=== PATIENT | male | born 1960 | race African-American/Black ===

== ENCOUNTER 2020-11-02 11:32 | Inpatient (IN) | payer BC ==
[2020-11-02] MEDS ORDERED: ALBUTEROL SO4 2.5/IPRATROPIUM 0.5 INH SOL 3 ML VIAL.NEB. NEB ONE ×2 (11:56→12:48)
[2020-11-02] MEDS ORDERED: DEXAMETHASONE SOD PHOSPHATE 4 MG/1 ML VIAL IVPUSH ONE (11:57)
[2020-11-02 12:40] LABS: BASO % 0.4 % (0-2.0); HEMATOCRIT 41.8 % (35.4-49); HEMOGLOBIN 14.5 GM/dL (11.7-16.9); LYMPH % 6.5 % (8-40); MCH 31.8 pg (25.7-33.7); MCHC 34.7 g/dl (32.0-35.9); MEAN CELL VOLUME 91.7 fl (80-96); MEAN PLT VOLUME 8.1 fl (7.5-11.1); MONO % 5.6 % (3.8-10.2); NEUT % 87.5 % (42.8-82.8); PLATELET COUNT 470 K/MM3 (134-434); RBC 4.56 M/mm3 (4.00-5.60); RDW 12.8 % (11.9-15.9); WHITE BLOOD COUNT 10.6 K/mm3 (4.0-10.0)
[2020-11-02 12:48] LABS: VENOUS BASE EXCESS 1.6 mmol/L (-2-2); VENOUS O2 SATURATION 31.3 % (70-80); VENOUS PCO2 41.6 mmHg (38-52); VENOUS PH 7.419 (7.310-7.410)
[2020-11-02] MEDS ORDERED: DEXAMETHASONE SOD PHOSPHATE 4 MG/1 ML VIAL ONE (12:48)
[2020-11-02] MEDS ORDERED: CEFTRIAXONE 1,000 MG in DEXTROSE 5%-WATER - 50 ML IVPB ONE (12:56)
[2020-11-02] MEDS ORDERED: AZITHROMYCIN IVPB 500 MG in DEXTROSE 5%-WATER - 250 ML IVPB ONE (12:56)
[2020-11-02 13:12] LABS: POTASSIUM 4.9 mmol/L (3.5-5.1)
[2020-11-02 13:15] LABS: ALBUMIN 3.2 g/dl (3.4-5.0); BLOOD UREA NITROGEN 17.9 mg/dL (7-18)
[2020-11-02 13:16] LABS: BILIRUBIN,DIRECT 0.4 mg/dL (0.0-0.2)
[2020-11-02 13:18] LABS: CREATININE 1.3 mg/dL (0.55-1.3); TOT PROT 8.2 g/dl (6.4-8.2)
[2020-11-02 13:23] LABS: LACTIC ACID 2.1 mmol/L (0.4-2.0)
[2020-11-02] MEDS ORDERED: CEFTRIAXONE 1 GM/50 ML BAG ONE (13:42)
[2020-11-02] MEDS ORDERED: AZITHROMYCIN IVPB 500 MG/250 ML BAG IVPB ONE (13:42)
[2020-11-02] MEDS ORDERED: ENOXAPARIN NA (PORCINE) 40 MG/0.4 ML DISP.SYRIN SQ ONE ×2 (13:44→15:08)
[2020-11-02] MEDS ORDERED: REMDESIVIR 200 MG in SODIUM CHLORIDE 210 ML IVPB ONE (15:00)
[2020-11-02] MEDS: ALBUTEROL SO4 HFA INHALER IH SCH ×2 (16:47→20:32)
[2020-11-02 20:10] LABS: EPI CELLS 18 /uL (0-25.1); HYALINE CASTS 7 /uL (0-3.1); URINE APPEARANCE CLEAR; URINE BACTERIA 211 /uL (0-1359); URINE BILIRUBIN 1+ (NEGATIVE); URINE COLOR DK YELLOW; URINE GLUCOSE (UA) NEGATIVE (NEGATIVE); URINE KETONE TRACE (NEGATIVE); URINE LEUK ESTERASE NEGATIVE (NEGATIVE); URINE NITRITE NEGATIVE (NEGATIVE); URINE PROTEIN 2+ (NEGATIVE); URINE RBC 14 /uL (0-23.9); URINE WBC 14 /uL (0-25.8)
[2020-11-02] MEDS: ENOXAPARIN NA (PORCINE) 100 MG/1 ML DISP.SYRIN SQ SCH (21:17)
[2020-11-02] MEDS: ATORVASTATIN CA 10 MG TABLET (FP) PO SCH (21:17)
[2020-11-02] MEDS: BUDESONIDE/FORMETEROL FUMARATE 160/4.5 mcg INHALER IH SCH (22:21)
[2020-11-03] MEDS: LEVOTHYROXINE NA 100 MCG TABLET (FP) PO SCH (06:02)
[2020-11-03 07:33] LABS: BASO % 0.3 % (0-2.0); HEMATOCRIT 36.8 % (35.4-49); LYMPH % 5.3 % (8-40); MCH 32.1 pg (25.7-33.7); MCHC 35.3 g/dl (32.0-35.9); MEAN CELL VOLUME 90.9 fl (80-96); MEAN PLT VOLUME 8.4 fl (7.5-11.1); NEUT % 90.4 % (42.8-82.8); PLATELET COUNT 436 K/MM3 (134-434); RBC 4.04 M/mm3 (4.00-5.60); RDW 12.4 % (11.9-15.9)
[2020-11-03 07:34] LABS: INR 1.2 (0.83-1.09); PROTHROMBIN TIME (PATIENT) 14.7 SEC (9.7-13.0)
[2020-11-03 07:36] LABS: ACTIVATED PTT 38.2 SECONDS (25.2-36.5)
[2020-11-03 07:53] LABS: POTASSIUM 4.8 mmol/L (3.5-5.1)
[2020-11-03 08:00] LABS: ALBUMIN 2.7 g/dl (3.4-5.0); CALCIUM 8.4 mg/dL (8.5-10.1)
[2020-11-03 08:02] LABS: BLOOD UREA NITROGEN 23.2 mg/dL (7-18); MAGNESIUM 3.4 mg/dL (1.8-2.4)
[2020-11-03 08:03] LABS: CREATININE 1.1 mg/dL (0.55-1.3)
[2020-11-03 08:06] LABS: BILIRUBIN,TOTAL 0.7 mg/dL (0.2-1); TOT PROT 7.1 g/dl (6.4-8.2)
[2020-11-03] MEDS ORDERED: cefTRIAXone SODIUM 1 GM VIAL ONE ×3 (08:58→09:34)
[2020-11-03] MEDS ORDERED: DEXTROSE 5%-WATER - 50 ML IVPB ONE ×2 (08:58→09:00)
[2020-11-03] MEDS ORDERED: PT OWN MED DRAWER 7, Y5N ONE (08:59)
[2020-11-03] MEDS ORDERED: AZITHROMYCIN IVPB 250 MG in DEXTROSE 5%-WATER - 250 ML IVPB SCH (10:00)
[2020-11-03] MEDS ORDERED: AZITHROMYCIN IVPB 500 MG in DEXTROSE 5%-WATER - 250 ML IVPB SCH (10:00)
[2020-11-03] MEDS: ALBUTEROL SO4 HFA INHALER IH SCH ×4 (10:38→20:00)
[2020-11-03] MEDS: ENOXAPARIN NA (PORCINE) 100 MG/1 ML DISP.SYRIN SQ SCH ×2 (10:38→21:36)
[2020-11-03] MEDS: FAMOTIDINE 20 MG TABLET PO SCH ×2 (10:39→21:36)
[2020-11-03] MEDS: CLOPIDOGREL BISULFATE 75 MG TABLET (FP) PO SCH (10:39)
[2020-11-03] MEDS: DEXAMETHASONE SOD PHOSPHATE 4 MG/1 ML VIAL IVPUSH SCH (10:39)
[2020-11-03] MEDS: BUDESONIDE/FORMETEROL FUMARATE 160/4.5 mcg INHALER IH SCH ×2 (10:39→21:37)
[2020-11-03] MEDS: ASPIRIN COATED 81 MG TABLET.EC PO SCH (10:39)
[2020-11-03] MEDS: CEFTRIAXONE 1 GM in DEXTROSE 5%-WATER - 50 ML IVPB SCH (10:39)
[2020-11-03] MEDS ORDERED: REMDESIVIR 100 MG in SODIUM CHLORIDE 230 ML IVPB SCH (15:00)
[2020-11-03] MEDS ORDERED: CARVEDILOL 6.25 MG TABLET (FP) PO SCH (15:00)
[2020-11-03] MEDS: ATORVASTATIN CA 10 MG TABLET (FP) PO SCH (21:36)
[2020-11-04] MEDS: LEVOTHYROXINE NA 100 MCG TABLET (FP) PO SCH (06:15)
[2020-11-04 07:06] LABS: HEMATOCRIT 37.1 % (35.4-49); MCH 31.7 pg (25.7-33.7); MCHC 34.9 g/dl (32.0-35.9); MEAN CELL VOLUME 90.7 fl (80-96); MEAN PLT VOLUME 8.2 fl (7.5-11.1); PLATELET COUNT 566 K/MM3 (134-434); RDW 12.3 % (11.9-15.9)
[2020-11-04 07:17] LABS: POTASSIUM 4.7 mmol/L (3.5-5.1)
[2020-11-04 07:20] LABS: ALBUMIN 2.6 g/dl (3.4-5.0); BLOOD UREA NITROGEN 27.2 mg/dL (7-18); MAGNESIUM 3.4 mg/dL (1.8-2.4)
[2020-11-04 07:23] LABS: BILIRUBIN,TOTAL 0.6 mg/dL (0.2-1); CREATININE 0.9 mg/dL (0.55-1.3); TOT PROT 7.1 g/dl (6.4-8.2)
[2020-11-04] MEDS ORDERED: cefTRIAXone SODIUM 1 GM VIAL ONE (09:03)
[2020-11-04] MEDS ORDERED: DEXTROSE 5%-WATER - 50 ML IVPB ONE (09:04)
[2020-11-04] MEDS: CEFTRIAXONE 1 GM in DEXTROSE 5%-WATER - 50 ML IVPB SCH (09:48)
[2020-11-04] MEDS: FAMOTIDINE 20 MG TABLET PO SCH ×2 (09:49→21:42)
[2020-11-04] MEDS: CLOPIDOGREL BISULFATE 75 MG TABLET (FP) PO SCH (09:49)
[2020-11-04] MEDS: ENOXAPARIN NA (PORCINE) 100 MG/1 ML DISP.SYRIN SQ SCH ×2 (09:49→21:41)
[2020-11-04] MEDS: DEXAMETHASONE SOD PHOSPHATE 4 MG/1 ML VIAL IVPUSH SCH (09:49)
[2020-11-04] MEDS: ASPIRIN COATED 81 MG TABLET.EC PO SCH (09:49)
[2020-11-04] MEDS: SENNOSIDES 8.6MG TABLET (FP) PO SCH ×2 (09:50→21:42)
[2020-11-04] MEDS: ALBUTEROL SO4 HFA INHALER IH SCH ×3 (09:50→16:01)
[2020-11-04] MEDS: DOCUSATE SODIUM 100 MG CAPSULE (FP) PO SCH (09:50)
[2020-11-04] MEDS: BUDESONIDE/FORMETEROL FUMARATE 160/4.5 mcg INHALER IH SCH ×2 (10:42→21:42)
[2020-11-04] MEDS: ATORVASTATIN CA 10 MG TABLET (FP) PO SCH (21:42)
[2020-11-05] MEDS: LEVOTHYROXINE NA 100 MCG TABLET (FP) PO SCH (06:13)
[2020-11-05 07:46] LABS: HEMATOCRIT 35.4 % (35.4-49); HEMOGLOBIN 12.3 GM/dL (11.7-16.9); MCH 31.6 pg (25.7-33.7); MCHC 34.8 g/dl (32.0-35.9); MEAN PLT VOLUME 8.1 fl (7.5-11.1); PLATELET COUNT 526 K/MM3 (134-434); RBC 3.89 M/mm3 (4.00-5.60); RDW 12.3 % (11.9-15.9); WHITE BLOOD COUNT 8.2 K/mm3 (4.0-10.0)
[2020-11-05] MEDS: ALBUTEROL SO4 HFA INHALER IH SCH ×3 (07:54→16:47)
[2020-11-05 07:58] LABS: POTASSIUM 4.5 mmol/L (3.5-5.1)
[2020-11-05 08:06] LABS: ALBUMIN 2.5 g/dl (3.4-5.0); BILIRUBIN,TOTAL 0.6 mg/dL (0.2-1); BLOOD UREA NITROGEN 23.4 mg/dL (7-18)
[2020-11-05 08:07] LABS: TOT PROT 6.6 g/dl (6.4-8.2)
[2020-11-05 08:09] LABS: CREATININE 0.9 mg/dL (0.55-1.3)
[2020-11-05 08:10] LABS: CALCIUM 8.8 mg/dL (8.5-10.1)
[2020-11-05] MEDS ORDERED: cefTRIAXone SODIUM 1 GM VIAL ONE (09:36)
[2020-11-05] MEDS ORDERED: DEXTROSE 5%-WATER - 50 ML IVPB ONE (09:37)
[2020-11-05] MEDS: CEFTRIAXONE 1 GM in DEXTROSE 5%-WATER - 50 ML IVPB SCH (09:53)
[2020-11-05] MEDS: ENOXAPARIN NA (PORCINE) 100 MG/1 ML DISP.SYRIN SQ SCH ×2 (09:53→22:19)
[2020-11-05] MEDS: SENNOSIDES 8.6MG TABLET (FP) PO SCH ×2 (09:54→22:19)
[2020-11-05] MEDS: DOCUSATE SODIUM 100 MG CAPSULE (FP) PO SCH (09:54)
[2020-11-05] MEDS: DEXAMETHASONE SOD PHOSPHATE 4 MG/1 ML VIAL IVPUSH SCH (09:54)
[2020-11-05] MEDS: CLOPIDOGREL BISULFATE 75 MG TABLET (FP) PO SCH (09:54)
[2020-11-05] MEDS: FAMOTIDINE 20 MG TABLET PO SCH ×2 (09:54→22:19)
[2020-11-05] MEDS: ASPIRIN COATED 81 MG TABLET.EC PO SCH (09:54)
[2020-11-05] MEDS: BUDESONIDE/FORMETEROL FUMARATE 160/4.5 mcg INHALER IH SCH ×2 (09:55→22:19)
[2020-11-05] MEDS: ATORVASTATIN CA 10 MG TABLET (FP) PO SCH (22:19)
[2020-11-06] MEDS: LEVOTHYROXINE NA 100 MCG TABLET (FP) PO SCH (06:07)
[2020-11-06 07:38] LABS: HEMATOCRIT 38.1 % (35.4-49); HEMOGLOBIN 13.1 GM/dL (11.7-16.9); MCH 31.6 pg (25.7-33.7); MCHC 34.4 g/dl (32.0-35.9); MEAN CELL VOLUME 91.9 fl (80-96); MEAN PLT VOLUME 7.5 fl (7.5-11.1); PLATELET COUNT 609 K/MM3 (134-434); RBC 4.14 M/mm3 (4.00-5.60); RDW 12.3 % (11.9-15.9); WHITE BLOOD COUNT 10.1 K/mm3 (4.0-10.0)
[2020-11-06 07:47] LABS: POTASSIUM 4.8 mmol/L (3.5-5.1)
[2020-11-06 07:50] LABS: CALCIUM 8.9 mg/dL (8.5-10.1)
[2020-11-06 07:54] LABS: CREATININE 0.9 mg/dL (0.55-1.3)
[2020-11-06] MEDS ORDERED: DEXTROSE 5%-WATER - 50 ML IVPB ONE (08:18)
[2020-11-06] MEDS ORDERED: cefTRIAXone SODIUM 1 GM VIAL ONE (08:18)
[2020-11-06] MEDS: DEXAMETHASONE SOD PHOSPHATE 4 MG/1 ML VIAL IVPUSH SCH (10:31)
[2020-11-06] MEDS: SENNOSIDES 8.6MG TABLET (FP) PO SCH ×2 (10:31→22:03)
[2020-11-06] MEDS: ASPIRIN COATED 81 MG TABLET.EC PO SCH (10:31)
[2020-11-06] MEDS: DOCUSATE SODIUM 100 MG CAPSULE (FP) PO SCH (10:31)
[2020-11-06] MEDS: CLOPIDOGREL BISULFATE 75 MG TABLET (FP) PO SCH (10:31)
[2020-11-06] MEDS: CEFTRIAXONE 1 GM in DEXTROSE 5%-WATER - 50 ML IVPB SCH (10:32)
[2020-11-06] MEDS: ENOXAPARIN NA (PORCINE) 100 MG/1 ML DISP.SYRIN SQ SCH ×2 (10:32→22:03)
[2020-11-06] MEDS: FAMOTIDINE 20 MG TABLET PO SCH ×2 (10:32→22:03)
[2020-11-06] MEDS: BUDESONIDE/FORMETEROL FUMARATE 160/4.5 mcg INHALER IH SCH ×2 (10:32→22:04)
[2020-11-06] MEDS: ATORVASTATIN CA 10 MG TABLET (FP) PO SCH (22:03)
[2020-11-07] MEDS: LEVOTHYROXINE NA 100 MCG TABLET (FP) PO SCH (06:08)
[2020-11-07] MEDS: ALBUTEROL SO4 HFA INHALER IH SCH ×4 (10:36→22:00)
[2020-11-07] MEDS: DOCUSATE SODIUM 100 MG CAPSULE (FP) PO SCH (10:36)
[2020-11-07] MEDS: SENNOSIDES 8.6MG TABLET (FP) PO SCH ×2 (10:37→22:28)
[2020-11-07] MEDS: DEXAMETHASONE SOD PHOSPHATE 4 MG/1 ML VIAL IVPUSH SCH (10:37)
[2020-11-07] MEDS: FAMOTIDINE 20 MG TABLET PO SCH ×2 (10:37→22:28)
[2020-11-07] MEDS: ASPIRIN COATED 81 MG TABLET.EC PO SCH (10:37)
[2020-11-07] MEDS: CLOPIDOGREL BISULFATE 75 MG TABLET (FP) PO SCH (10:37)
[2020-11-07] MEDS: ENOXAPARIN NA (PORCINE) 100 MG/1 ML DISP.SYRIN SQ SCH (10:37)
[2020-11-07] MEDS: BUDESONIDE/FORMETEROL FUMARATE 160/4.5 mcg INHALER IH SCH ×2 (10:38→22:28)
[2020-11-07] MEDS ORDERED: TOCILIZUMAB IVPB ONE (15:00)
[2020-11-07] MEDS ORDERED: SODIUM CHLORIDE IVPB ONE (15:00)
[2020-11-07] MEDS ORDERED: ENOXAPARIN NA (PORCINE) 100 MG/1 ML DISP.SYRIN SQ SCH (22:00)
[2020-11-07] MEDS: ENOXAPARIN NA (PORCINE) 80 MG/0.8 ML DISP.SYRIN SQ SCH (22:28)
[2020-11-07] MEDS: ATORVASTATIN CA 10 MG TABLET (FP) PO SCH (22:28)
[2020-11-08] MEDS: LEVOTHYROXINE NA 100 MCG TABLET (FP) PO SCH (07:21)
[2020-11-08] MEDS: ENOXAPARIN NA (PORCINE) 80 MG/0.8 ML DISP.SYRIN SQ SCH ×2 (09:32→21:46)
[2020-11-08] MEDS: SENNOSIDES 8.6MG TABLET (FP) PO SCH ×2 (09:32→21:46)
[2020-11-08] MEDS: ALBUTEROL SO4 HFA INHALER IH SCH ×4 (09:33→21:47)
[2020-11-08] MEDS: DEXAMETHASONE SOD PHOSPHATE 4 MG/1 ML VIAL IVPUSH SCH (09:33)
[2020-11-08] MEDS: FAMOTIDINE 20 MG TABLET PO SCH ×2 (09:33→21:47)
[2020-11-08] MEDS: CLOPIDOGREL BISULFATE 75 MG TABLET (FP) PO SCH (09:33)
[2020-11-08] MEDS: DOCUSATE SODIUM 100 MG CAPSULE (FP) PO SCH (09:33)
[2020-11-08] MEDS: ASPIRIN COATED 81 MG TABLET.EC PO SCH (09:33)
[2020-11-08] MEDS: BUDESONIDE/FORMETEROL FUMARATE 160/4.5 mcg INHALER IH SCH ×2 (09:33→21:47)
[2020-11-08] MEDS: ATORVASTATIN CA 10 MG TABLET (FP) PO SCH (21:47)
[2020-11-09] MEDS: LEVOTHYROXINE NA 100 MCG TABLET (FP) PO SCH (06:15)
[2020-11-09 09:20] LABS: BASO % 0.2 % (0-2.0); EOS % 0.5 % (0-4.5); HEMATOCRIT 40.4 % (35.4-49); HEMOGLOBIN 14.3 GM/dL (11.7-16.9); LYMPH % 6.7 % (8-40); MCH 31.4 pg (25.7-33.7); MCHC 35.3 g/dl (32.0-35.9); MEAN PLT VOLUME 7.7 fl (7.5-11.1); MONO % 3.3 % (3.8-10.2); NEUT % 89.3 % (42.8-82.8); PLATELET COUNT 765 K/MM3 (134-434); RBC 4.55 M/mm3 (4.00-5.60); RDW 12.3 % (11.9-15.9); WHITE BLOOD COUNT 12.4 K/mm3 (4.0-10.0)
[2020-11-09 09:28] LABS: POTASSIUM 5.2 mmol/L (3.5-5.1)
[2020-11-09] MEDS: DEXAMETHASONE SOD PHOSPHATE 4 MG/1 ML VIAL IVPUSH SCH (10:02)
[2020-11-09] MEDS: DOCUSATE SODIUM 100 MG CAPSULE (FP) PO SCH (10:05)
[2020-11-09] MEDS: ENOXAPARIN NA (PORCINE) 80 MG/0.8 ML DISP.SYRIN SQ SCH ×2 (10:06→21:49)
[2020-11-09] MEDS: SENNOSIDES 8.6MG TABLET (FP) PO SCH ×3 (10:06→21:58)
[2020-11-09] MEDS: CLOPIDOGREL BISULFATE 75 MG TABLET (FP) PO SCH (10:06)
[2020-11-09] MEDS: ASPIRIN COATED 81 MG TABLET.EC PO SCH (10:06)
[2020-11-09] MEDS: ALBUTEROL SO4 HFA INHALER IH SCH ×4 (10:07→20:10)
[2020-11-09] MEDS: FAMOTIDINE 20 MG TABLET PO SCH ×2 (10:08→21:49)
[2020-11-09] MEDS: BUDESONIDE/FORMETEROL FUMARATE 160/4.5 mcg INHALER IH SCH ×2 (10:08→21:50)
[2020-11-09 10:25] LABS: ALBUMIN 2.7 g/dl (3.4-5.0); BLOOD UREA NITROGEN 29.2 mg/dL (7-18); CALCIUM 9.8 mg/dL (8.5-10.1)
[2020-11-09 10:28] LABS: CREATININE 0.9 mg/dL (0.55-1.3)
[2020-11-09 10:29] LABS: BILIRUBIN,TOTAL 0.8 mg/dL (0.2-1); TOT PROT 7.5 g/dl (6.4-8.2)
[2020-11-09] MEDS ORDERED: SODIUM ZIRCONIUM CYCLOSILICATE (LOKELMA) 5 GM PACKET PO ONE (11:18)
[2020-11-09] MEDS: ATORVASTATIN CA 10 MG TABLET (FP) PO SCH (21:49)
[2020-11-10] MEDS: LEVOTHYROXINE NA 100 MCG TABLET (FP) PO SCH (06:32)
[2020-11-10] MEDS: ALBUTEROL SO4 HFA INHALER IH SCH ×3 (08:13→22:26)
[2020-11-10] MEDS ORDERED: MORPHINE SULFATE 2 MG/ML VIAL ONE (08:21)
[2020-11-10] MEDS: MORPHINE SULFATE 2 MG/ML VIAL IVPUSH ONE ×2 (08:28→10:33)
[2020-11-10] MEDS: SENNOSIDES 8.6MG TABLET (FP) PO SCH ×3 (08:29→22:26)
[2020-11-10] MEDS: CLOPIDOGREL BISULFATE 75 MG TABLET (FP) PO SCH ×2 (08:29→11:14)
[2020-11-10] MEDS: BUDESONIDE/FORMETEROL FUMARATE 160/4.5 mcg INHALER IH SCH ×3 (08:29→22:27)
[2020-11-10] MEDS: FAMOTIDINE 20 MG TABLET PO SCH ×3 (08:29→22:26)
[2020-11-10] MEDS: ENOXAPARIN NA (PORCINE) 80 MG/0.8 ML DISP.SYRIN SQ SCH ×3 (08:29→22:26)
[2020-11-10] MEDS: DOCUSATE SODIUM 100 MG CAPSULE (FP) PO SCH ×2 (08:29→11:13)
[2020-11-10] MEDS: ASPIRIN COATED 81 MG TABLET.EC PO SCH ×2 (08:30→11:14)
[2020-11-10] MEDS: DEXAMETHASONE SOD PHOSPHATE 4 MG/1 ML VIAL IVPUSH SCH ×2 (08:30→11:14)
[2020-11-10 08:36] LABS: BASO % 0.7 % (0-2.0); EOS % 0.7 % (0-4.5); HEMATOCRIT 45.4 % (35.4-49); HEMOGLOBIN 15.9 GM/dL (11.7-16.9); LYMPH % 9.1 % (8-40); MCH 31.6 pg (25.7-33.7); MEAN CELL VOLUME 90.3 fl (80-96); MEAN PLT VOLUME 7.8 fl (7.5-11.1); MONO % 4.2 % (3.8-10.2); NEUT % 85.3 % (42.8-82.8); PLATELET COUNT 800 K/MM3 (134-434); RBC 5.02 M/mm3 (4.00-5.60); RDW 12.6 % (11.9-15.9); WHITE BLOOD COUNT 12.6 K/mm3 (4.0-10.0)
[2020-11-10 08:54] LABS: LACTIC ACID 2.8 mmol/L (0.4-2.0)
[2020-11-10 09:06] LABS: ALBUMIN 2.9 g/dl (3.4-5.0); BLOOD UREA NITROGEN 33.3 mg/dL (7-18)
[2020-11-10 09:09] LABS: CREATININE 0.9 mg/dL (0.55-1.3)
[2020-11-10 09:10] LABS: BILIRUBIN,TOTAL 0.7 mg/dL (0.2-1); TOT PROT 7.8 g/dl (6.4-8.2)
[2020-11-10] MEDS ORDERED: AMINO ACIDS 4.25%/D5W 1,000 ML IV SCH (12:45)
[2020-11-10] MEDS: ATORVASTATIN CA 10 MG TABLET (FP) PO SCH (22:26)
[2020-11-11] MEDS ORDERED: morphine SULFATE 4 MG/ML VIAL ONE (04:13)
[2020-11-11] MEDS ORDERED: LORazepam 2 MG/ML SDV VIAL ONE (04:26)
[2020-11-11] MEDS ORDERED: RAPID SEQUENCE INTUBATION KIT NR ONE (04:29)
[2020-11-11] MEDS ORDERED: FENTANYL NS IVPB 500 MCG/100 ML BAG IVPB ONE (04:49)
[2020-11-11] MEDS: PROPOFOL 1,000,000 MCG/100 ML VIAL IVPB SCH ×2 (05:00→08:00)
[2020-11-11] MEDS ORDERED: morphine CARPU-JECT 4 MG/1 ML DISP.SYRIN IVPUSH ONE (05:19)
[2020-11-11] MEDS ORDERED: SODIUM CHLORIDE 500 ML IV STA (05:26)
[2020-11-11] MEDS: VECURONIUM BROMIDE 100 MG/100 ML BAG IVPB SCH (05:30)
[2020-11-11] MEDS ORDERED: SODIUM CHLORIDE 1,000 ML IV SCH (05:30)
[2020-11-11 06:36] LABS: ARTERIAL BLD GAS O2 SATURATION 96.6 mmHg (95-98); ARTERIAL BLOOD GAS BASE EXCESS -7.6 mmol/L (-2-2); ARTERIAL BLOOD GAS PO2 98.6 mmHg (80-100); ARTERIAL BLOOD GAS pH 7.267 (7.350-7.450)
[2020-11-11 06:37] LABS: ALLENS TEST POSITIVE; VENT MODE A/C; VENT RATE 20
[2020-11-11 06:48] LABS: BASO % 0.3 % (0-2.0); EOS % 0.4 % (0-4.5); HEMATOCRIT 43.2 % (35.4-49); HEMOGLOBIN 15.1 GM/dL (11.7-16.9); LYMPH % 4.9 % (8-40); MCH 31.6 pg (25.7-33.7); MCHC 35.1 g/dl (32.0-35.9); MEAN CELL VOLUME 90.2 fl (80-96); MEAN PLT VOLUME 7.4 fl (7.5-11.1); MONO % 4.3 % (3.8-10.2); NEUT % 90.1 % (42.8-82.8); PLATELET COUNT 647 K/MM3 (134-434); RBC 4.79 M/mm3 (4.00-5.60); RDW 12.5 % (11.9-15.9); WHITE BLOOD COUNT 12.8 K/mm3 (4.0-10.0)
[2020-11-11] MEDS: FENTANYL IVPB 500 MCG/100 ML BAG IVPB SCH ×3 (06:55→15:20)
[2020-11-11] MEDS: LEVOTHYROXINE NA 100 MCG TABLET (FP) PO SCH (07:00)
[2020-11-11 07:03] LABS: POTASSIUM 4.6 mmol/L (3.5-5.1)
[2020-11-11 07:08] LABS: CALCIUM 8.7 mg/dL (8.5-10.1); MAGNESIUM 2.5 mg/dL (1.8-2.4)
[2020-11-11 07:10] LABS: ALBUMIN 2.7 g/dl (3.4-5.0)
[2020-11-11 07:11] LABS: PHOSPHOROUS 4.9 mg/dL (2.5-4.9)
[2020-11-11 07:12] LABS: CREATININE 0.9 mg/dL (0.55-1.3)
[2020-11-11 07:13] LABS: BILIRUBIN,TOTAL 0.6 mg/dL (0.2-1)
[2020-11-11] MEDS ORDERED: LORazepam 2 MG/ML SDV VIAL IVPB ONE (07:19)
[2020-11-11] MEDS: ALBUTEROL SO4 HFA INHALER IH SCH ×3 (08:14→23:24)
[2020-11-11] MEDS: DOCUSATE SODIUM 100 MG CAPSULE (FP) PO SCH (09:41)
[2020-11-11] MEDS: BUDESONIDE/FORMETEROL FUMARATE 160/4.5 mcg INHALER IH SCH ×2 (09:42→23:24)
[2020-11-11] MEDS: ENOXAPARIN NA (PORCINE) 80 MG/0.8 ML DISP.SYRIN SQ SCH ×2 (11:05→23:23)
[2020-11-11] MEDS: CLOPIDOGREL BISULFATE 75 MG TABLET (FP) PO SCH ×2 (11:05→13:50)
[2020-11-11] MEDS: DEXAMETHASONE SOD PHOSPHATE 4 MG/1 ML VIAL IVPUSH SCH (11:05)
[2020-11-11] MEDS: ASPIRIN COATED 81 MG TABLET.EC PO SCH ×2 (11:05→11:11)
[2020-11-11] MEDS ORDERED: PT OWN MED DRAWER 7, Y5N ONE (11:07)
[2020-11-11] MEDS: FAMOTIDINE 20 MG TABLET PO SCH (11:11)
[2020-11-11] MEDS: SENNOSIDES 8.6MG TABLET (FP) PO SCH (11:11)
[2020-11-11] MEDS: FAMOTIDINE 20 MG/50 ML IVPB 20 MG/50 ML MG IVPB SCH ×2 (12:19→23:23)
[2020-11-11] MEDS: LACTATED RINGERS SOLUTION 1,000 ML/1,000 ML INFUS.BAG IV SCH (12:19)
[2020-11-11 12:47] LABS: URINE APPEARANCE TURBID; URINE BILIRUBIN NEGATIVE (NEGATIVE); URINE COLOR YELLOW; URINE GLUCOSE (UA) NEGATIVE (NEGATIVE); URINE KETONE NEGATIVE (NEGATIVE); URINE LEUK ESTERASE NEGATIVE (NEGATIVE); URINE NITRITE NEGATIVE (NEGATIVE); URINE PROTEIN NEGATIVE (NEGATIVE); URINE UROBILINOGEN 0.2 mg/dL (0.2-1.0)
[2020-11-11] MEDS: ASPIRIN 81 MG CHEWABLE TABLETS PO SCH (13:50)
[2020-11-11] MEDS: ATORVASTATIN CA 10 MG TABLET (FP) GT SCH (23:23)
[2020-11-12 06:02] LABS: ARTERIAL BLOOD GAS BASE EXCESS -3.3 mmol/L (-2-2); ARTERIAL BLOOD GAS PO2 114.4 mmHg (80-100); ARTERIAL BLOOD GAS pH 7.333 (7.350-7.450)
[2020-11-12 06:07] LABS: ALLENS TEST POSITIVE; ARTERIAL BLD GAS O2 SATURATION 97.7 mmHg (95-98)
[2020-11-12 06:08] LABS: VENT MODE A/C; VENT RATE 26
[2020-11-12 07:05] LABS: BASO % 0.5 % (0-2.0); EOS % 0.4 % (0-4.5); HEMATOCRIT 42.7 % (35.4-49); HEMOGLOBIN 14.5 GM/dL (11.7-16.9); LYMPH % 7.1 % (8-40); MCH 31.1 pg (25.7-33.7); MEAN CELL VOLUME 91.3 fl (80-96); MEAN PLT VOLUME 7.8 fl (7.5-11.1); MONO % 3.8 % (3.8-10.2); NEUT % 88.2 % (42.8-82.8); PLATELET COUNT 554 K/MM3 (134-434); RBC 4.68 M/mm3 (4.00-5.60); RDW 12.3 % (11.9-15.9); WHITE BLOOD COUNT 14.8 K/mm3 (4.0-10.0)
[2020-11-12 07:14] LABS: POTASSIUM 5.2 mmol/L (3.5-5.1)
[2020-11-12 07:20] LABS: ALBUMIN 2.6 g/dl (3.4-5.0); BLOOD UREA NITROGEN 32.9 mg/dL (7-18); CALCIUM 8.9 mg/dL (8.5-10.1)
[2020-11-12 07:21] LABS: MAGNESIUM 2.6 mg/dL (1.8-2.4)
[2020-11-12 07:23] LABS: CREATININE 0.8 mg/dL (0.55-1.3)
[2020-11-12 07:24] LABS: BILIRUBIN,TOTAL 0.3 mg/dL (0.2-1); PHOSPHOROUS 4.2 mg/dL (2.5-4.9)
[2020-11-12 07:25] LABS: TOT PROT 6.5 g/dl (6.4-8.2)
[2020-11-12] MEDS: FENTANYL IVPB 500 MCG/100 ML BAG IVPB SCH ×3 (07:39→18:50)
[2020-11-12] MEDS: PROPOFOL 1,000,000 MCG/100 ML VIAL IVPB SCH ×2 (07:40→18:55)
[2020-11-12] MEDS ORDERED: PT OWN MED DRAWER 7, Y5N ONE ×2 (08:38→09:06)
[2020-11-12] MEDS: ALBUTEROL SO4 HFA INHALER IH SCH ×4 (09:08→23:00)
[2020-11-12] MEDS: BUDESONIDE/FORMETEROL FUMARATE 160/4.5 mcg INHALER IH SCH ×2 (09:09→23:00)
[2020-11-12] MEDS: DEXAMETHASONE SOD PHOSPHATE 4 MG/1 ML VIAL IVPUSH SCH ×2 (09:12→22:58)
[2020-11-12] MEDS: CLOPIDOGREL BISULFATE 75 MG TABLET (FP) GT SCH (09:12)
[2020-11-12] MEDS: LEVOTHYROXINE SODIUM 100 MCG VIAL IVPUSH SCH (09:12)
[2020-11-12] MEDS: ASPIRIN 81 MG CHEWABLE TABLETS PO SCH (09:12)
[2020-11-12] MEDS: ENOXAPARIN NA (PORCINE) 80 MG/0.8 ML DISP.SYRIN SQ SCH ×2 (09:12→22:58)
[2020-11-12] MEDS: FAMOTIDINE 20 MG/50 ML IVPB 20 MG/50 ML MG IVPB SCH ×2 (09:12→22:58)
[2020-11-12] MEDS: VECURONIUM BROMIDE 100 MG/100 ML BAG IVPB SCH ×2 (17:28→18:30)
[2020-11-12] MEDS: LACTATED RINGERS SOLUTION 1,000 ML/1,000 ML INFUS.BAG IV SCH ×2 (17:28→19:06)
[2020-11-12] MEDS: ATORVASTATIN CA 10 MG TABLET (FP) GT SCH (22:58)
[2020-11-13] MEDS ORDERED: FENTANYL NS IVPB 500 MCG/100 ML BAG IVPB ONE (04:39)
[2020-11-13 06:06] LABS: ARTERIAL BLOOD GAS BASE EXCESS 0 mmol/L (-2-2); ARTERIAL BLOOD GAS PO2 82.7 mmHg (80-100); ARTERIAL BLOOD GAS pH 7.367 (7.350-7.450)
[2020-11-13 06:07] LABS: ALLENS TEST POSITIVE
[2020-11-13 06:08] LABS: VENT MODE A/C; VENT RATE 26
[2020-11-13 06:51] LABS: BASO % 0.2 % (0-2.0); HEMATOCRIT 38.6 % (35.4-49); HEMOGLOBIN 13.3 GM/dL (11.7-16.9); LYMPH % 2.6 % (8-40); MCH 31.4 pg (25.7-33.7); MCHC 34.5 g/dl (32.0-35.9); MEAN CELL VOLUME 90.9 fl (80-96); MEAN PLT VOLUME 7.8 fl (7.5-11.1); MONO % 2.2 % (3.8-10.2); PLATELET COUNT 417 K/MM3 (134-434); RBC 4.24 M/mm3 (4.00-5.60); RDW 12.3 % (11.9-15.9); WHITE BLOOD COUNT 16.7 K/mm3 (4.0-10.0)
[2020-11-13 07:04] LABS: CHLORIDE 98 mmol/L (98-107); POTASSIUM 5.4 mmol/L (3.5-5.1); SODIUM 143 mmol/L (136-145)
[2020-11-13 07:08] LABS: ALBUMIN 2.4 g/dl (3.4-5.0); ANION GAP 16 MMOL/L (8-16); CO2 29 mmol/L (21-32); GLUCOSE,RANDOM 135 mg/dL (74-106); MAGNESIUM 2.6 mg/dL (1.8-2.4)
[2020-11-13 07:09] LABS: PHOSPHOROUS 3.2 mg/dL (2.5-4.9)
[2020-11-13] MEDS: PROPOFOL 1,000,000 MCG/100 ML VIAL IVPB SCH (07:10)
[2020-11-13 07:11] LABS: BILIRUBIN,TOTAL 0.3 mg/dL (0.2-1); CREATININE 0.7 mg/dL (0.55-1.3); SGOT/AST 22 U/L (15-37); SGPT/ALT 33 U/L (13-61); TOT PROT 5.6 g/dl (6.4-8.2)
[2020-11-13 07:12] LABS: ALK PHOS 90 U/L (45-117); BLOOD UREA NITROGEN 22.9 mg/dL (7-18); LDH 357 U/L (87-246)
[2020-11-13] MEDS ORDERED: FUROSEMIDE 40 MG/4 ML INJECTABLE VIAL IVPUSH ONE (07:56)
[2020-11-13] MEDS ORDERED: VECURONIUM BROMIDE 10 MG/10 ML VIAL ONE (08:07)
[2020-11-13] MEDS ORDERED: VECURONIUM BROMIDE 50 MG/50 ML VIAL IVPUSH ONE ×2 (08:09→14:08)
[2020-11-13] MEDS: VECURONIUM BROMIDE 100 MG/100 ML BAG IVPB SCH (08:16)
[2020-11-13] MEDS: ALBUTEROL SO4 HFA INHALER IH SCH ×3 (08:17→18:03)
[2020-11-13] MEDS: FENTANYL IVPB 500 MCG/100 ML BAG IVPB SCH ×2 (08:54→10:28)
[2020-11-13] MEDS ORDERED: DEXTROSE 50%-WATER - 25 GM/50 ML VIAL IVPUSH ONE (09:01)
[2020-11-13] MEDS ORDERED: INSULIN REGULAR HUMAN 100 UNITS/ML *VIAL IVPUSH ONE (09:02)
[2020-11-13] MEDS ORDERED: CALCIUM GLUCONATE 10% - 1,000 MG/10 ML VIAL IVPUSH ONE (09:02)
[2020-11-13] MEDS ORDERED: PT OWN MED DRAWER 7, Y5N ONE ×3 (09:08→11:57)
[2020-11-13] MEDS: FAMOTIDINE 20 MG/50 ML IVPB 20 MG/50 ML MG IVPB SCH ×2 (09:30→22:46)
[2020-11-13] MEDS ORDERED: DEXTROSE 50%-WATER - 25 GM/50 ML VIAL ONE (10:10)
[2020-11-13] MEDS: DEXAMETHASONE SOD PHOSPHATE 4 MG/1 ML VIAL IVPUSH SCH ×2 (10:11→22:46)
[2020-11-13] MEDS: ASPIRIN 81 MG CHEWABLE TABLETS PO SCH (10:11)
[2020-11-13] MEDS: BUDESONIDE/FORMETEROL FUMARATE 160/4.5 mcg INHALER IH SCH (10:11)
[2020-11-13] MEDS: LEVOTHYROXINE SODIUM 100 MCG VIAL IVPUSH SCH (10:27)
[2020-11-13] MEDS: CLOPIDOGREL BISULFATE 75 MG TABLET (FP) GT SCH (10:44)
[2020-11-13] MEDS: ENOXAPARIN NA (PORCINE) 80 MG/0.8 ML DISP.SYRIN SQ SCH ×2 (10:44→22:47)
[2020-11-13] MEDS: LACTATED RINGERS SOLUTION 1,000 ML/1,000 ML INFUS.BAG IV SCH (10:45)
[2020-11-13] MEDS ORDERED: MIDAZOLAM 100 MG/100 ML MG IVPB SCH (14:45)
[2020-11-13] MEDS ORDERED: MIDAZOLAM IN 0.9 % SOD.CHLORID 1 MG/1 ML PLAST..BAG ONE (15:11)
[2020-11-13] MEDS: MIDAZOLAM IN 0.9 % SOD.CHLORID 100 MG/100 ML PLAST..BAG IVPB SCH (15:26)
[2020-11-13 16:02] LABS: POTASSIUM 4.6 mmol/L (3.5-5.1)
[2020-11-13 16:03] LABS: CALCIUM 9.3 mg/dL (8.5-10.1)
[2020-11-13 16:04] LABS: BLOOD UREA NITROGEN 21.9 mg/dL (7-18)
[2020-11-13 16:07] LABS: CREATININE 0.6 mg/dL (0.55-1.3)
[2020-11-13] MEDS: CHLORHEXIDINE GLUCONATE 4% CLEANSER FOR DECOLONIZATION TP SCH (22:00)
[2020-11-13] MEDS: ATORVASTATIN CA 10 MG TABLET (FP) GT SCH (22:46)
[2020-11-14 07:20] LABS: BASO % 0.3 % (0-2.0); HEMATOCRIT 35.3 % (35.4-49); HEMOGLOBIN 12.3 GM/dL (11.7-16.9); LYMPH % 2.8 % (8-40); MCH 31.4 pg (25.7-33.7); MCHC 34.8 g/dl (32.0-35.9); MEAN CELL VOLUME 90.1 fl (80-96); MEAN PLT VOLUME 7.9 fl (7.5-11.1); MONO % 2.2 % (3.8-10.2); NEUT % 94.7 % (42.8-82.8); PLATELET COUNT 371 K/MM3 (134-434); RBC 3.92 M/mm3 (4.00-5.60); RDW 12.2 % (11.9-15.9); WHITE BLOOD COUNT 16.5 K/mm3 (4.0-10.0)
[2020-11-14 07:48] LABS: POTASSIUM 4.6 mmol/L (3.5-5.1)
[2020-11-14 07:51] LABS: CALCIUM 8.5 mg/dL (8.5-10.1)
[2020-11-14 07:52] LABS: ALBUMIN 2.6 g/dl (3.4-5.0); BLOOD UREA NITROGEN 19.4 mg/dL (7-18); MAGNESIUM 2.4 mg/dL (1.8-2.4)
[2020-11-14 07:54] LABS: CREATININE 0.6 mg/dL (0.55-1.3)
[2020-11-14 07:55] LABS: PHOSPHOROUS 3.4 mg/dL (2.5-4.9)
[2020-11-14 07:56] LABS: BILIRUBIN,TOTAL 0.2 mg/dL (0.2-1); TOT PROT 5.6 g/dl (6.4-8.2)
[2020-11-14] MEDS ORDERED: fentaNYL CITRATE 250 MCG/5 ML VIAL ONE (08:27)
[2020-11-14] MEDS ORDERED: PT OWN MED DRAWER 7, Y5N ONE ×2 (08:37→09:17)
[2020-11-14] MEDS: ASPIRIN 81 MG CHEWABLE TABLETS PO SCH (09:24)
[2020-11-14] MEDS: ENOXAPARIN NA (PORCINE) 80 MG/0.8 ML DISP.SYRIN SQ SCH ×2 (09:24→23:03)
[2020-11-14] MEDS: DEXAMETHASONE SOD PHOSPHATE 4 MG/1 ML VIAL IVPUSH SCH ×2 (09:24→23:02)
[2020-11-14] MEDS: CLOPIDOGREL BISULFATE 75 MG TABLET (FP) GT SCH (09:24)
[2020-11-14] MEDS: FAMOTIDINE 20 MG/50 ML IVPB 20 MG/50 ML MG IVPB SCH ×2 (09:25→23:04)
[2020-11-14] MEDS: LEVOTHYROXINE SODIUM 100 MCG VIAL IVPUSH SCH (09:26)
[2020-11-14 09:35] LABS: ANISOCYTOSIS 1+; MACROCYTOSIS 0; PLATELET ESTIMATE NORMAL
[2020-11-14] MEDS: ALBUTEROL SO4 HFA INHALER IH SCH ×5 (10:41→23:04)
[2020-11-14] MEDS: BUDESONIDE/FORMETEROL FUMARATE 160/4.5 mcg INHALER IH SCH ×3 (10:42→23:04)
[2020-11-14] MEDS: LACTATED RINGERS SOLUTION 1,000 ML/1,000 ML INFUS.BAG IV SCH (14:31)
[2020-11-14] MEDS: POLYETHYLENE GLYCOL 3350 119 GM BTL PO SCH (14:32)
[2020-11-14] MEDS: PROPOFOL 1,000,000 MCG/100 ML VIAL IVPB SCH (16:50)
[2020-11-14] MEDS: FENTANYL IVPB 500 MCG/100 ML BAG IVPB SCH (16:51)
[2020-11-14] MEDS: VECURONIUM BROMIDE 100 MG/100 ML BAG IVPB SCH (16:52)
[2020-11-14] MEDS: MIDAZOLAM IN 0.9 % SOD.CHLORID 100 MG/100 ML PLAST..BAG IVPB SCH (16:53)
[2020-11-14] MEDS: ATORVASTATIN CA 10 MG TABLET (FP) GT SCH (23:04)
[2020-11-14] MEDS: CHLORHEXIDINE GLUCONATE 4% CLEANSER FOR DECOLONIZATION TP SCH (23:04)
[2020-11-15 05:54] LABS: ARTERIAL BLD GAS O2 SATURATION 93.1 mmHg (95-98); ARTERIAL BLOOD GAS PO2 70.5 mmHg (80-100); ARTERIAL BLOOD GAS pH 7.354 (7.350-7.450)
[2020-11-15 05:55] LABS: ALLENS TEST POSITIVE; VENT MODE A/C
[2020-11-15 05:56] LABS: VENT RATE 26
[2020-11-15] MEDS ORDERED: FENTANYL NS IVPB 500 MCG/100 ML BAG IVPB ONE ×4 (06:26→23:10)
[2020-11-15 07:07] LABS: BASO % 0.3 % (0-2.0); HEMATOCRIT 35.3 % (35.4-49); LYMPH % 2.1 % (8-40); MCH 30.9 pg (25.7-33.7); MEAN CELL VOLUME 90.9 fl (80-96); MEAN PLT VOLUME 7.5 fl (7.5-11.1); MONO % 3.4 % (3.8-10.2); NEUT % 94.2 % (42.8-82.8); PLATELET COUNT 308 K/MM3 (134-434); RBC 3.88 M/mm3 (4.00-5.60); RDW 12.3 % (11.9-15.9); WHITE BLOOD COUNT 16.7 K/mm3 (4.0-10.0)
[2020-11-15 07:26] LABS: POTASSIUM 4.5 mmol/L (3.5-5.1)
[2020-11-15] MEDS: PROPOFOL 1,000,000 MCG/100 ML VIAL IVPB SCH (07:30)
[2020-11-15 07:32] LABS: ALBUMIN 2.6 g/dl (3.4-5.0); BLOOD UREA NITROGEN 17.4 mg/dL (7-18); CALCIUM 8.8 mg/dL (8.5-10.1); MAGNESIUM 2.4 mg/dL (1.8-2.4)
[2020-11-15 07:33] LABS: CREATININE 0.5 mg/dL (0.55-1.3)
[2020-11-15 07:34] LABS: PHOSPHOROUS 3.5 mg/dL (2.5-4.9)
[2020-11-15 07:35] LABS: BILIRUBIN,TOTAL 0.3 mg/dL (0.2-1); TOT PROT 5.8 g/dl (6.4-8.2)
[2020-11-15] MEDS: ALBUTEROL SO4 HFA INHALER IH SCH ×4 (08:50→22:55)
[2020-11-15] MEDS ORDERED: PT OWN MED DRAWER 7, Y5N ONE (09:37)
[2020-11-15] MEDS: DEXAMETHASONE SOD PHOSPHATE 4 MG/1 ML VIAL IVPUSH SCH ×2 (09:41→22:56)
[2020-11-15] MEDS: CLOPIDOGREL BISULFATE 75 MG TABLET (FP) GT SCH (09:41)
[2020-11-15] MEDS: ASPIRIN 81 MG CHEWABLE TABLETS PO SCH (09:41)
[2020-11-15] MEDS: LEVOTHYROXINE SODIUM 100 MCG VIAL IVPUSH SCH (09:41)
[2020-11-15] MEDS: FAMOTIDINE 20 MG/50 ML IVPB 20 MG/50 ML MG IVPB SCH ×2 (09:41→22:56)
[2020-11-15] MEDS: ENOXAPARIN NA (PORCINE) 80 MG/0.8 ML DISP.SYRIN SQ SCH ×2 (09:41→22:56)
[2020-11-15] MEDS: FENTANYL IVPB 500 MCG/100 ML BAG IVPB SCH (09:42)
[2020-11-15] MEDS: POLYETHYLENE GLYCOL 3350 119 GM BTL PO SCH (09:42)
[2020-11-15] MEDS: VECURONIUM BROMIDE 100 MG/100 ML BAG IVPB SCH (09:42)
[2020-11-15] MEDS: BUDESONIDE/FORMETEROL FUMARATE 160/4.5 mcg INHALER IH SCH ×2 (09:43→22:55)
[2020-11-15 10:11] LABS: ANISOCYTOSIS 0; MACROCYTOSIS 0; PLATELET ESTIMATE NORMAL
[2020-11-15] MEDS: LACTATED RINGERS SOLUTION 1,000 ML/1,000 ML INFUS.BAG IV SCH (11:30)
[2020-11-15] MEDS: MIDAZOLAM IN 0.9 % SOD.CHLORID 100 MG/100 ML PLAST..BAG IVPB SCH (18:06)
[2020-11-15] MEDS: ATORVASTATIN CA 10 MG TABLET (FP) GT SCH (22:56)
[2020-11-15] MEDS: CHLORHEXIDINE GLUCONATE 4% CLEANSER FOR DECOLONIZATION TP SCH (22:56)
[2020-11-16] MEDS ORDERED: FENTANYL NS IVPB 500 MCG/100 ML BAG IVPB ONE (04:27)
[2020-11-16] MEDS: PROPOFOL 1,000,000 MCG/100 ML VIAL IVPB SCH (05:00)
[2020-11-16] MEDS: VECURONIUM BROMIDE 100 MG/100 ML BAG IVPB SCH (05:00)
[2020-11-16] MEDS: FENTANYL IVPB 500 MCG/100 ML BAG IVPB SCH (05:35)
[2020-11-16 06:12] LABS: ARTERIAL BLD GAS O2 SATURATION 85.4 mmHg (95-98); ARTERIAL BLOOD GAS BASE EXCESS 6.3 mmol/L (-2-2); ARTERIAL BLOOD GAS PO2 55.3 mmHg (80-100); ARTERIAL BLOOD GAS pH 7.325 (7.350-7.450)
[2020-11-16 06:13] LABS: ALLENS TEST POSITIVE; VENT RATE 26
[2020-11-16 06:14] LABS: VENT MODE A/C
[2020-11-16 06:26] LABS: HEMATOCRIT 37.1 % (35.4-49); HEMOGLOBIN 12.4 GM/dL (11.7-16.9); MCH 30.9 pg (25.7-33.7); MCHC 33.3 g/dl (32.0-35.9); MEAN CELL VOLUME 92.9 fl (80-96); MEAN PLT VOLUME 8.3 fl (7.5-11.1); PLATELET COUNT 280 K/MM3 (134-434); RBC 3.99 M/mm3 (4.00-5.60); RDW 12.5 % (11.9-15.9); WHITE BLOOD COUNT 17.3 K/mm3 (4.0-10.0)
[2020-11-16 06:31] LABS: POTASSIUM 4.6 mmol/L (3.5-5.1)
[2020-11-16 06:34] LABS: CALCIUM 8.9 mg/dL (8.5-10.1)
[2020-11-16 06:35] LABS: BLOOD UREA NITROGEN 19.9 mg/dL (7-18); MAGNESIUM 2.3 mg/dL (1.8-2.4)
[2020-11-16 06:38] LABS: CREATININE 0.6 mg/dL (0.55-1.3)
[2020-11-16] MEDS ORDERED: PT OWN MED DRAWER 7, Y5N ONE (08:33)
[2020-11-16] MEDS: ALBUTEROL SO4 HFA INHALER IH SCH ×4 (09:02→22:32)
[2020-11-16] MEDS: POLYETHYLENE GLYCOL 3350 119 GM BTL PO SCH (09:02)
[2020-11-16] MEDS: FAMOTIDINE 20 MG/50 ML IVPB 20 MG/50 ML MG IVPB SCH ×2 (09:02→22:35)
[2020-11-16] MEDS: LEVOTHYROXINE SODIUM 100 MCG VIAL IVPUSH SCH (09:03)
[2020-11-16] MEDS: ASPIRIN 81 MG CHEWABLE TABLETS PO SCH (09:03)
[2020-11-16] MEDS: ENOXAPARIN NA (PORCINE) 80 MG/0.8 ML DISP.SYRIN SQ SCH ×2 (09:03→22:34)
[2020-11-16] MEDS: CLOPIDOGREL BISULFATE 75 MG TABLET (FP) GT SCH (09:03)
[2020-11-16] MEDS: BUDESONIDE/FORMETEROL FUMARATE 160/4.5 mcg INHALER IH SCH ×2 (09:04→22:35)
[2020-11-16] MEDS: DEXAMETHASONE SOD PHOSPHATE 4 MG/1 ML VIAL IVPUSH SCH ×2 (09:04→22:33)
[2020-11-16] MEDS: LACTATED RINGERS SOLUTION 1,000 ML/1,000 ML INFUS.BAG IV SCH (12:14)
[2020-11-16] MEDS: MIDAZOLAM IN 0.9 % SOD.CHLORID 100 MG/100 ML PLAST..BAG IVPB SCH (16:31)
[2020-11-16] MEDS ORDERED: ROCURONIUM BROMIDE 50 MG/5 ML VIAL IV ONE (17:43)
[2020-11-16] MEDS ORDERED: RAPID SEQUENCE INTUBATION KIT NR ONE (18:12)
[2020-11-16] MEDS: ATORVASTATIN CA 10 MG TABLET (FP) GT SCH (22:34)
[2020-11-16] MEDS: CHLORHEXIDINE GLUCONATE 4% CLEANSER FOR DECOLONIZATION TP SCH (22:34)
[2020-11-17] MEDS: FENTANYL IVPB 500 MCG/100 ML BAG IVPB SCH ×2 (04:14→21:18)
[2020-11-17 06:20] LABS: ARTERIAL BLD GAS O2 SATURATION 86.6 mmHg (95-98); ARTERIAL BLOOD GAS BASE EXCESS 9.8 mmol/L (-2-2); ARTERIAL BLOOD GAS PO2 54.7 mmHg (80-100); ARTERIAL BLOOD GAS pH 7.373 (7.350-7.450)
[2020-11-17] MEDS: PROPOFOL 1,000,000 MCG/100 ML VIAL IVPB SCH ×2 (06:40→21:18)
[2020-11-17 06:44] LABS: ALLENS TEST POSITIVE; VENT MODE A/C; VENT RATE 26
[2020-11-17 06:53] LABS: BASO % 0.2 % (0-2.0); EOS % 0.1 % (0-4.5); HEMATOCRIT 36.3 % (35.4-49); HEMOGLOBIN 12.3 GM/dL (11.7-16.9); LYMPH % 3.5 % (8-40); MCH 31.4 pg (25.7-33.7); MEAN CELL VOLUME 92.3 fl (80-96); MEAN PLT VOLUME 8.3 fl (7.5-11.1); MONO % 3.9 % (3.8-10.2); NEUT % 92.3 % (42.8-82.8); PLATELET COUNT 238 K/MM3 (134-434); RBC 3.93 M/mm3 (4.00-5.60); RDW 12.5 % (11.9-15.9); WHITE BLOOD COUNT 15.9 K/mm3 (4.0-10.0)
[2020-11-17 07:10] LABS: POTASSIUM 4.5 mmol/L (3.5-5.1)
[2020-11-17 07:14] LABS: ALBUMIN 2.6 g/dl (3.4-5.0)
[2020-11-17 07:15] LABS: CALCIUM 8.9 mg/dL (8.5-10.1); MAGNESIUM 2.2 mg/dL (1.8-2.4)
[2020-11-17 07:18] LABS: CREATININE 0.5 mg/dL (0.55-1.3); PHOSPHOROUS 4.2 mg/dL (2.5-4.9)
[2020-11-17 07:19] LABS: BILIRUBIN,TOTAL 0.3 mg/dL (0.2-1); TOT PROT 5.8 g/dl (6.4-8.2)
[2020-11-17] MEDS ORDERED: FENTANYL NS IVPB 500 MCG/100 ML BAG IVPB ONE ×2 (07:28→14:01)
[2020-11-17 08:35] LABS: ANISOCYTOSIS 0; MACROCYTOSIS 0; PLATELET ESTIMATE NORMAL
[2020-11-17] MEDS: ALBUTEROL SO4 HFA INHALER IH SCH ×4 (08:44→21:16)
[2020-11-17] MEDS: VECURONIUM BROMIDE 100 MG/100 ML BAG IVPB SCH (09:14)
[2020-11-17] MEDS: ASPIRIN 81 MG CHEWABLE TABLETS PO SCH (09:14)
[2020-11-17] MEDS: DEXAMETHASONE SOD PHOSPHATE 4 MG/1 ML VIAL IVPUSH SCH ×2 (09:14→21:16)
[2020-11-17] MEDS: CLOPIDOGREL BISULFATE 75 MG TABLET (FP) GT SCH (09:14)
[2020-11-17] MEDS: ENOXAPARIN NA (PORCINE) 80 MG/0.8 ML DISP.SYRIN SQ SCH ×2 (09:15→21:16)
[2020-11-17] MEDS: FAMOTIDINE 20 MG/50 ML IVPB 20 MG/50 ML MG IVPB SCH ×2 (09:15→21:18)
[2020-11-17] MEDS: POLYETHYLENE GLYCOL 3350 119 GM BTL PO SCH (09:15)
[2020-11-17] MEDS: BUDESONIDE/FORMETEROL FUMARATE 160/4.5 mcg INHALER IH SCH ×2 (09:15→21:18)
[2020-11-17] MEDS ORDERED: PT OWN MED DRAWER 7, Y5N ONE (10:16)
[2020-11-17] MEDS: LEVOTHYROXINE SODIUM 100 MCG VIAL IVPUSH SCH (10:20)
[2020-11-17] MEDS: LACTATED RINGERS SOLUTION 1,000 ML/1,000 ML INFUS.BAG IV SCH ×2 (12:59→21:19)
[2020-11-17 15:16] VITALS: BMI 27.1
[2020-11-17] MEDS: MIDAZOLAM IN 0.9 % SOD.CHLORID 100 MG/100 ML PLAST..BAG IVPB SCH (16:12)
[2020-11-17] MEDS: AMINO ACIDS/PROTEIN HYDROLYS 30 ML LIQUID.PKT PO SCH (17:20)
[2020-11-17] MEDS: CHLORHEXIDINE GLUCONATE 4% CLEANSER FOR DECOLONIZATION TP SCH (21:16)
[2020-11-17] MEDS: ATORVASTATIN CA 10 MG TABLET (FP) GT SCH (21:16)
[2020-11-18] MEDS: FENTANYL IVPB 500 MCG/100 ML BAG IVPB SCH (02:12)
[2020-11-18] MEDS: PROPOFOL 1,000,000 MCG/100 ML VIAL IVPB SCH ×2 (03:16→06:19)
[2020-11-18] MEDS: VECURONIUM BROMIDE 100 MG/100 ML BAG IVPB SCH (06:20)
[2020-11-18] MEDS: MIDAZOLAM IN 0.9 % SOD.CHLORID 100 MG/100 ML PLAST..BAG IVPB SCH ×2 (06:34→18:33)
[2020-11-18 06:53] LABS: HEMATOCRIT 37.1 % (35.4-49); HEMOGLOBIN 12.4 GM/dL (11.7-16.9); MCH 31.1 pg (25.7-33.7); MCHC 33.4 g/dl (32.0-35.9); MEAN PLT VOLUME 8.4 fl (7.5-11.1); PLATELET COUNT 227 K/MM3 (134-434); RBC 3.99 M/mm3 (4.00-5.60); RDW 12.7 % (11.9-15.9); WHITE BLOOD COUNT 17.4 K/mm3 (4.0-10.0)
[2020-11-18] MEDS ORDERED: FENTANYL IVPB 500 MCG/100 ML BAG IVPB ONE ×2 (07:06→19:04)
[2020-11-18 07:14] LABS: POTASSIUM 4.7 mmol/L (3.5-5.1)
[2020-11-18 07:19] LABS: ALBUMIN 2.6 g/dl (3.4-5.0); BLOOD UREA NITROGEN 19.4 mg/dL (7-18); CALCIUM 8.8 mg/dL (8.5-10.1)
[2020-11-18 07:20] LABS: MAGNESIUM 2.1 mg/dL (1.8-2.4)
[2020-11-18 07:22] LABS: CREATININE 0.5 mg/dL (0.55-1.3); PHOSPHOROUS 4.5 mg/dL (2.5-4.9)
[2020-11-18 07:23] LABS: BILIRUBIN,TOTAL 0.4 mg/dL (0.2-1); TOT PROT 5.7 g/dl (6.4-8.2)
[2020-11-18] MEDS: CLOPIDOGREL BISULFATE 75 MG TABLET (FP) GT SCH (09:01)
[2020-11-18] MEDS: ASPIRIN 81 MG CHEWABLE TABLETS PO SCH (09:01)
[2020-11-18] MEDS: FAMOTIDINE 20 MG/50 ML IVPB 20 MG/50 ML MG IVPB SCH ×2 (09:01→22:16)
[2020-11-18] MEDS: ALBUTEROL SO4 HFA INHALER IH SCH ×3 (09:02→22:15)
[2020-11-18] MEDS: DEXAMETHASONE SOD PHOSPHATE 4 MG/1 ML VIAL IVPUSH SCH ×2 (09:02→22:16)
[2020-11-18] MEDS: ENOXAPARIN NA (PORCINE) 80 MG/0.8 ML DISP.SYRIN SQ SCH ×2 (09:02→22:16)
[2020-11-18] MEDS: AMINO ACIDS/PROTEIN HYDROLYS 30 ML LIQUID.PKT PO SCH ×2 (09:02→17:05)
[2020-11-18] MEDS ORDERED: PT OWN MED DRAWER 7, Y5N ONE (09:03)
[2020-11-18] MEDS: POLYETHYLENE GLYCOL 3350 119 GM BTL PO SCH (09:03)
[2020-11-18] MEDS: BUDESONIDE/FORMETEROL FUMARATE 160/4.5 mcg INHALER IH SCH ×2 (09:04→22:15)
[2020-11-18] MEDS: LEVOTHYROXINE SODIUM 100 MCG VIAL IVPUSH SCH (09:04)
[2020-11-18] MEDS: LACTATED RINGERS SOLUTION 1,000 ML/1,000 ML INFUS.BAG IV SCH (11:30)
[2020-11-18] MEDS: ALBUTEROL SO4 0.083% IH SOL 2.5 MG/3 ML VIAL.NEB. NEB PRN ×2 (12:50→16:05)
[2020-11-18] MEDS ORDERED: FENTANYL NS IVPB 500 MCG/100 ML BAG IVPB ONE (13:48)
[2020-11-18] MEDS: FENTANYL NS IVPB 500 MCG/100 ML BAG IVPB SCH (19:45)
[2020-11-18] MEDS: CHLORHEXIDINE GLUCONATE 4% CLEANSER FOR DECOLONIZATION TP SCH (22:16)
[2020-11-18] MEDS: ATORVASTATIN CA 10 MG TABLET (FP) GT SCH (22:16)
[2020-11-19] MEDS: VECURONIUM BROMIDE 100 MG/100 ML BAG IVPB SCH ×2 (05:00→15:28)
[2020-11-19] MEDS: PROPOFOL 1,000,000 MCG/100 ML VIAL IVPB SCH ×4 (06:40→21:12)
[2020-11-19 07:15] LABS: HEMATOCRIT 37.6 % (35.4-49); HEMOGLOBIN 12.6 GM/dL (11.7-16.9); MCH 31.1 pg (25.7-33.7); MCHC 33.6 g/dl (32.0-35.9); MEAN CELL VOLUME 92.6 fl (80-96); MEAN PLT VOLUME 8.9 fl (7.5-11.1); PLATELET COUNT 225 K/MM3 (134-434); RBC 4.07 M/mm3 (4.00-5.60); RDW 12.6 % (11.9-15.9); WHITE BLOOD COUNT 17.1 K/mm3 (4.0-10.0)
[2020-11-19] MEDS: FENTANYL NS IVPB 500 MCG/100 ML BAG IVPB SCH ×4 (07:20→21:11)
[2020-11-19 07:27] LABS: CHLORIDE 94 mmol/L (98-107); POTASSIUM 4.7 mmol/L (3.5-5.1); SODIUM 136 mmol/L (136-145)
[2020-11-19 07:32] LABS: ANION GAP 1 MMOL/L (8-16); CO2 40 mmol/L (21-32); GLUCOSE,RANDOM 131 mg/dL (74-106); MAGNESIUM 2.2 mg/dL (1.8-2.4)
[2020-11-19 07:33] LABS: ALBUMIN 2.8 g/dl (3.4-5.0)
[2020-11-19 07:35] LABS: PHOSPHOROUS 5.2 mg/dL (2.5-4.9); SGOT/AST 46 U/L (15-37); SGPT/ALT 72 U/L (13-61)
[2020-11-19 07:36] LABS: BILIRUBIN,TOTAL 0.4 mg/dL (0.2-1); TOT PROT 5.8 g/dl (6.4-8.2)
[2020-11-19 07:37] LABS: ALK PHOS 91 U/L (45-117); CREATININE 0.5 mg/dL (0.55-1.3)
[2020-11-19] MEDS: MIDAZOLAM IN 0.9 % SOD.CHLORID 100 MG/100 ML PLAST..BAG IVPB SCH ×3 (08:05→18:32)
[2020-11-19] MEDS: AMINO ACIDS/PROTEIN HYDROLYS 30 ML LIQUID.PKT PO SCH ×2 (08:07→16:43)
[2020-11-19] MEDS: DOCUSATE NA 100 MG/10 ML UNIT-DOSE CUPS PO PRN (08:07)
[2020-11-19] MEDS: ALBUTEROL SO4 HFA INHALER IH SCH ×3 (08:07→21:37)
[2020-11-19] MEDS: ALBUTEROL SO4 0.083% IH SOL 2.5 MG/3 ML VIAL.NEB. NEB PRN ×2 (08:35→20:09)
[2020-11-19] MEDS ORDERED: PT OWN MED DRAWER 7, Y5N ONE (09:25)
[2020-11-19] MEDS: LEVOTHYROXINE SODIUM 100 MCG VIAL IVPUSH SCH (09:40)
[2020-11-19] MEDS: ENOXAPARIN NA (PORCINE) 80 MG/0.8 ML DISP.SYRIN SQ SCH ×2 (09:40→21:41)
[2020-11-19] MEDS: BUDESONIDE/FORMETEROL FUMARATE 160/4.5 mcg INHALER IH SCH ×2 (09:40→21:37)
[2020-11-19] MEDS: CLOPIDOGREL BISULFATE 75 MG TABLET (FP) GT SCH (09:40)
[2020-11-19] MEDS: DEXAMETHASONE SOD PHOSPHATE 4 MG/1 ML VIAL IVPUSH SCH ×2 (09:40→21:41)
[2020-11-19] MEDS: ASPIRIN 81 MG CHEWABLE TABLETS PO SCH (09:41)
[2020-11-19] MEDS: FAMOTIDINE 20 MG/50 ML IVPB 20 MG/50 ML MG IVPB SCH ×2 (09:42→21:40)
[2020-11-19] MEDS: POLYETHYLENE GLYCOL 3350 119 GM BTL PO SCH (09:42)
[2020-11-19] MEDS: LACTATED RINGERS SOLUTION 1,000 ML/1,000 ML INFUS.BAG IV SCH (15:28)
[2020-11-19] MEDS: ROCURONIUM BROMIDE 500 MG/300 ML BAG IVPB SCH (21:11)
[2020-11-19] MEDS: ATORVASTATIN CA 10 MG TABLET (FP) GT SCH (21:41)
[2020-11-19] MEDS: CHLORHEXIDINE GLUCONATE 4% CLEANSER FOR DECOLONIZATION TP SCH (21:41)
[2020-11-20] MEDS: ALBUTEROL SO4 0.083% IH SOL 2.5 MG/3 ML VIAL.NEB. NEB PRN ×4 (00:17→23:46)
[2020-11-20] MEDS: MIDAZOLAM IN 0.9 % SOD.CHLORID 100 MG/100 ML PLAST..BAG IVPB SCH ×4 (03:12→23:55)
[2020-11-20] MEDS: LACTATED RINGERS SOLUTION 1,000 ML/1,000 ML INFUS.BAG IV SCH ×3 (03:12→16:00)
[2020-11-20] MEDS: FENTANYL NS IVPB 500 MCG/100 ML BAG IVPB SCH ×4 (05:04→21:15)
[2020-11-20] MEDS: PROPOFOL 1,000,000 MCG/100 ML VIAL IVPB SCH ×4 (05:04→23:54)
[2020-11-20] MEDS: ROCURONIUM BROMIDE 500 MG/300 ML BAG IVPB SCH ×3 (05:50→23:54)
[2020-11-20 07:03] LABS: HEMATOCRIT 37.6 % (35.4-49); HEMOGLOBIN 12.7 GM/dL (11.7-16.9); MCH 31.3 pg (25.7-33.7); MCHC 33.8 g/dl (32.0-35.9); MEAN CELL VOLUME 92.5 fl (80-96); MEAN PLT VOLUME 8.5 fl (7.5-11.1); PLATELET COUNT 224 K/MM3 (134-434); RBC 4.07 M/mm3 (4.00-5.60); RDW 12.6 % (11.9-15.9); WHITE BLOOD COUNT 22.4 K/mm3 (4.0-10.0)
[2020-11-20 07:26] LABS: POTASSIUM 4.9 mmol/L (3.5-5.1)
[2020-11-20 07:38] LABS: CALCIUM 8.9 mg/dL (8.5-10.1)
[2020-11-20 07:39] LABS: ALBUMIN 2.6 g/dl (3.4-5.0); BLOOD UREA NITROGEN 22.5 mg/dL (7-18)
[2020-11-20 07:40] LABS: MAGNESIUM 2.2 mg/dL (1.8-2.4)
[2020-11-20 07:42] LABS: CREATININE 0.5 mg/dL (0.55-1.3); PHOSPHOROUS 4.7 mg/dL (2.5-4.9)
[2020-11-20 07:44] LABS: BILIRUBIN,TOTAL 0.3 mg/dL (0.2-1); TOT PROT 5.8 g/dl (6.4-8.2)
[2020-11-20] MEDS ORDERED: PT OWN MED DRAWER 7, Y5N ONE (09:08)
[2020-11-20] MEDS: ALBUTEROL SO4 HFA INHALER IH SCH ×4 (09:12→21:29)
[2020-11-20] MEDS: ENOXAPARIN NA (PORCINE) 80 MG/0.8 ML DISP.SYRIN SQ SCH ×2 (09:22→22:12)
[2020-11-20] MEDS: POLYETHYLENE GLYCOL 3350 119 GM BTL PO SCH (09:22)
[2020-11-20] MEDS: BUDESONIDE/FORMETEROL FUMARATE 160/4.5 mcg INHALER IH SCH ×2 (09:22→21:28)
[2020-11-20] MEDS: DEXAMETHASONE SOD PHOSPHATE 4 MG/1 ML VIAL IVPUSH SCH ×2 (09:22→21:29)
[2020-11-20] MEDS: FAMOTIDINE 20 MG/50 ML IVPB 20 MG/50 ML MG IVPB SCH ×2 (09:22→21:29)
[2020-11-20] MEDS: ASPIRIN 81 MG CHEWABLE TABLETS PO SCH (09:22)
[2020-11-20] MEDS: CLOPIDOGREL BISULFATE 75 MG TABLET (FP) GT SCH (09:22)
[2020-11-20] MEDS: AMINO ACIDS/PROTEIN HYDROLYS 30 ML LIQUID.PKT PO SCH ×2 (09:22→18:11)
[2020-11-20] MEDS: LEVOTHYROXINE SODIUM 100 MCG VIAL IVPUSH SCH (09:23)
[2020-11-20] MEDS: DOCUSATE NA 100 MG/10 ML UNIT-DOSE CUPS PO PRN (09:28)
[2020-11-20 13:10] LABS: EPI CELLS 8 /uL (0-25.1); HYALINE CASTS 3 /uL (0-3.1); PH,URINE 5.5 (5.0-8.0); URINE APPEARANCE TURBID; URINE BACTERIA 21 /uL (0-1359); URINE BILIRUBIN NEGATIVE (NEGATIVE); URINE COLOR ORANGE; URINE GLUCOSE (UA) NEGATIVE (NEGATIVE); URINE KETONE NEGATIVE (NEGATIVE); URINE LEUK ESTERASE 1+ (NEGATIVE); URINE NITRITE NEGATIVE (NEGATIVE); URINE PROTEIN 1+ (NEGATIVE); URINE UROBILINOGEN 0.2 mg/dL (0.2-1.0); URINE WBC 105 /uL (0-25.8)
[2020-11-20 13:13] LABS: URINE RBC 5365.3 /uL (0-23.9)
[2020-11-20] MEDS: ATORVASTATIN CA 10 MG TABLET (FP) GT SCH (21:29)
[2020-11-20] MEDS: CHLORHEXIDINE GLUCONATE 4% CLEANSER FOR DECOLONIZATION TP SCH (21:29)
[2020-11-20] MEDS ORDERED: BISACODYL 10 MG SUPP.RECT PR PRN (22:07)
[2020-11-21] MEDS: FENTANYL NS IVPB 500 MCG/100 ML BAG IVPB SCH ×2 (03:06→20:00)
[2020-11-21] MEDS: PROPOFOL 1,000,000 MCG/100 ML VIAL IVPB SCH (05:12)
[2020-11-21 07:16] LABS: HEMATOCRIT 34.1 % (35.4-49); HEMOGLOBIN 11.6 GM/dL (11.7-16.9); MCH 31.5 pg (25.7-33.7); MCHC 34.1 g/dl (32.0-35.9); MEAN CELL VOLUME 92.4 fl (80-96); MEAN PLT VOLUME 8.4 fl (7.5-11.1); PLATELET COUNT 201 K/MM3 (134-434); RDW 12.5 % (11.9-15.9); WHITE BLOOD COUNT 17.4 K/mm3 (4.0-10.0)
[2020-11-21 07:21] LABS: POTASSIUM 4.7 mmol/L (3.5-5.1)
[2020-11-21 07:24] LABS: ALBUMIN 2.6 g/dl (3.4-5.0); BLOOD UREA NITROGEN 21.3 mg/dL (7-18); CALCIUM 8.6 mg/dL (8.5-10.1)
[2020-11-21 07:27] LABS: CREATININE 0.5 mg/dL (0.55-1.3)
[2020-11-21 07:29] LABS: BILIRUBIN,TOTAL 0.4 mg/dL (0.2-1); TOT PROT 5.4 g/dl (6.4-8.2)
[2020-11-21] MEDS: ENOXAPARIN NA (PORCINE) 80 MG/0.8 ML DISP.SYRIN SQ SCH ×2 (10:07→21:42)
[2020-11-21] MEDS: AMINO ACIDS/PROTEIN HYDROLYS 30 ML LIQUID.PKT PO SCH ×2 (10:07→17:04)
[2020-11-21] MEDS: DEXAMETHASONE SOD PHOSPHATE 4 MG/1 ML VIAL IVPUSH SCH ×2 (10:07→21:41)
[2020-11-21] MEDS: POLYETHYLENE GLYCOL 3350 119 GM BTL PO SCH (10:07)
[2020-11-21] MEDS: CLOPIDOGREL BISULFATE 75 MG TABLET (FP) GT SCH (10:08)
[2020-11-21] MEDS: FAMOTIDINE 20 MG/50 ML IVPB 20 MG/50 ML MG IVPB SCH ×2 (10:08→21:42)
[2020-11-21] MEDS: ASPIRIN 81 MG CHEWABLE TABLETS PO SCH (10:08)
[2020-11-21] MEDS: LEVOTHYROXINE SODIUM 100 MCG VIAL IVPUSH SCH (10:12)
[2020-11-21] MEDS: MIDAZOLAM IN 0.9 % SOD.CHLORID 100 MG/100 ML PLAST..BAG IVPB SCH (16:24)
[2020-11-21] MEDS: BUDESONIDE/FORMETEROL FUMARATE 160/4.5 mcg INHALER IH SCH ×2 (16:25→21:42)
[2020-11-21] MEDS: ALBUTEROL SO4 HFA INHALER IH SCH ×3 (17:28→21:49)
[2020-11-21] MEDS ORDERED: ACETAMINOPHEN 1000 MG/100 ML VIAL (NON FORMULARY) IVPB ONE (18:06)
[2020-11-21] MEDS: ROCURONIUM BROMIDE 500 MG/300 ML BAG IVPB SCH (20:00)
[2020-11-21] MEDS: ATORVASTATIN CA 10 MG TABLET (FP) GT SCH (21:41)
[2020-11-21] MEDS: CHLORHEXIDINE GLUCONATE 4% CLEANSER FOR DECOLONIZATION TP SCH (21:41)
[2020-11-21] MEDS ORDERED: METOPROLOL TARTRATE 5 MG/5 ML VIAL IVPUSH ONE (22:07)
[2020-11-22] MEDS: ALBUTEROL SO4 0.083% IH SOL 2.5 MG/3 ML VIAL.NEB. NEB PRN (03:52)
[2020-11-22] MEDS: PROPOFOL 1,000,000 MCG/100 ML VIAL IVPB SCH ×2 (05:00→10:07)
[2020-11-22 07:08] LABS: HEMATOCRIT 32.4 % (35.4-49); MCH 31.5 pg (25.7-33.7); MEAN CELL VOLUME 92.6 fl (80-96); MEAN PLT VOLUME 8.4 fl (7.5-11.1); PLATELET COUNT 150 K/MM3 (134-434); RDW 12.4 % (11.9-15.9); WHITE BLOOD COUNT 20.5 K/mm3 (4.0-10.0)
[2020-11-22 07:51] LABS: ALBUMIN 2.6 g/dl (3.4-5.0); BILIRUBIN,TOTAL 0.4 mg/dL (0.2-1); BLOOD UREA NITROGEN 24.9 mg/dL (7-18); CALCIUM 8.2 mg/dL (8.5-10.1); CREATININE 0.5 mg/dL (0.55-1.3); PHOSPHOROUS 3.1 mg/dL (2.5-4.9); POTASSIUM 4.7 mmol/L (3.5-5.1); TOT PROT 5.1 g/dl (6.4-8.2)
[2020-11-22] MEDS: FAMOTIDINE 20 MG/50 ML IVPB 20 MG/50 ML MG IVPB SCH (10:05)
[2020-11-22] MEDS: AMINO ACIDS/PROTEIN HYDROLYS 30 ML LIQUID.PKT PO SCH (10:06)
[2020-11-22] MEDS: ENOXAPARIN NA (PORCINE) 80 MG/0.8 ML DISP.SYRIN SQ SCH (10:08)
[2020-11-22] MEDS: ASPIRIN 81 MG CHEWABLE TABLETS PO SCH (10:08)
[2020-11-22] MEDS: DEXAMETHASONE SOD PHOSPHATE 4 MG/1 ML VIAL IVPUSH SCH (10:08)
[2020-11-22] MEDS: POLYETHYLENE GLYCOL 3350 119 GM BTL PO SCH (10:09)
[2020-11-22] MEDS: CLOPIDOGREL BISULFATE 75 MG TABLET (FP) GT SCH (10:09)
[2020-11-22] MEDS: LEVOTHYROXINE SODIUM 100 MCG VIAL IVPUSH SCH (10:11)
[2020-11-22] MEDS ORDERED: PT OWN MED DRAWER 7, Y5N ONE (10:11)
[2020-11-22] MEDS: ALBUTEROL SO4 HFA INHALER IH SCH (10:12)
[2020-11-22] MEDS: BUDESONIDE/FORMETEROL FUMARATE 160/4.5 mcg INHALER IH SCH (10:12)
[2020-11-22 10:14] VITALS: PULSE 126
[2020-11-22 12:22] VITALS: BP 74/48; TEMP 98.6
== END 2020-11-22 15:00 | disposition expired | DRG 207 ==
LOC: JER 11:32 → JERBED 14:15 → J4W 15:58 → JICU 11-10 11:06
PROVIDERS: ADMIT Internal Medicine; ATTEND Internal Medicine
PROC: XW033H5 Introduction of Tocilizumab into Peripheral Vein, Percutaneous Approach, New Technology Group 5 (ICD-10-PCS; 2020-11-07)
PROC: 5A1955Z Respiratory Ventilation, Greater than 96 Consecutive Hours (ICD-10-PCS; principal; 2020-11-11)
PROC: 0BH17EZ Insertion of Endotracheal Airway into Trachea, Via Natural or Artificial Opening (ICD-10-PCS; 2020-11-11)
PROC: 0DH67UZ Insertion of Feeding Device into Stomach, Via Natural or Artificial Opening (ICD-10-PCS; 2020-11-11)
PROC: 3E0G76Z Introduction of Nutritional Substance into Upper GI, Via Natural or Artificial Opening (ICD-10-PCS; 2020-11-11)
PROC: 02HV33Z Insertion of Infusion Device into Superior Vena Cava, Percutaneous Approach (ICD-10-PCS; 2020-11-12)
PROC: B548ZZA Ultrasonography of Superior Vena Cava, Guidance (ICD-10-PCS; 2020-11-12)
DX: U07.1 COVID-19 (principal); J12.82 Pneumonia due to coronavirus disease 2019; J80 Acute respiratory distress syndrome; E87.2 Acidosis; I10 Essential (primary) hypertension; I25.10 Atherosclerotic heart disease of native coronary artery without angina pectoris; E03.9 Hypothyroidism, unspecified; J44.9 Chronic obstructive pulmonary disease, unspecified; R79.89 Other specified abnormal findings of blood chemistry; D47.3 Essential (hemorrhagic) thrombocythemia
CPT/HCPCS: 36415; 36600; 71045-TC-FY; 80048; 80053; 81003; 82248; 82550; 82553; 82728; 82803; 82962; 83605; 83615; 83735; 84100; 84484; 85025; 85027; 85379; 85610; 85730; 86140; 86480; 86769; 87040; 87070; 87086; 87186; 87205; 87804; 87899; 93005; 93010; 94002; 94640; 94660; 99291; C9803; J0131; J3262; U0003